=== PATIENT | male | born 1950 | race Asian ===

== ENCOUNTER 2024-02-10 03:55 | Emergency (ER) | payer MEDICAID, SELFPAY ==
[2024-02-10] VITALS (7 sets, daily range): BP systolic 172–201; BP diastolic 94–102; PULSE 63–79; RESP 18–19; TEMP 36.9–37.1; O2SAT 96–98; BMI 26.4
--- NOTE | 2024-02-10 03:57 | EKG_ITS ---
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: : 1950 Requested By: Monica Soto Order Number: [id number] Reading MD: Monica Soto Measurements Intervals [place] Rate: 64 P: 62 MN: 212 QRS: 114 QRSD: 141 T: 47 QT: 381 QTc: 394 Interpretive Statements SINUS RHYTHM WITH FIRST DEGREE AV BLOCK MARKED RIGHT AXIS DEVIATION [QRS AXIS > 100] RIGHT BUNDLE BRANCH BLOCK [120+ ms QRS DURATION, UPRIGHT V1, 40+ ms S IN I/aVL/V4/V5/V6] SEPTAL MYOCARDIAL INFARCTION , OF INDETERMINATE AGE [40+ ms Q WAVE IN V1/V2] Compared to ECG 12/30/2023 15:52:36 First degree AV block now present Right-axis deviation now present Right bundle-branch block now present Left-axis deviation no longer present Myocardial infarct finding still present /store/S0/[id number]/ecg/[id number].pdf
--- NOTE | 2024-02-10 03:58 | XR_ITS ---
Examination: AP chest single view Technique one AP portable upright chest single view Exam date and time: February 10, 2024 at 0409 hrs. Comparison December 30, 2023 Indications: Onset chest pain today Findings: Normal heart size No pneumonia or pulmonary edema. The osseous structures are intact Impression: No active disease
--- NOTE | 2024-02-10 04:14 | PC.NURSE ---
Attempted to obtain [place] drug abuse resistance education officer at this time via video interpretation services but none are available at this time. [employer] service recommended waiting a bit and trying again.
[2024-02-10 04:40] LABS: Basophils % (Auto) 1 % (0-2.5); Eosinophils # (Auto) 0.4 Thou/mm3 (0.0-0.5); Eosinophils % (Auto) 9 % (0-10); Hematocrit 37.6 % (41.0-53.0); Hemoglobin 12.8 g/dL (13.5-16.0); Immature Granulocytes % (Auto) 0 % (0-0); Immature Granulocytes Auto 0.01 Thou/mm3 (0.00-0.00); Lymphocytes # (Auto) 1.4 Thou/mm3 (1.0-4.8); Lymphocytes % (Auto) 32 % (10-50); Mean Corpuscular Hemoglobin 27.8 pg (25.0-35.0); Mean Corpuscular Volume 82 fL (80-100); Monocytes # (Auto) 0.4 Thou/mm3 (0.0-0.8); Monocytes % (Auto) 9 % (0-12); Neutrophils # (Auto) 2.2 Thou/mm3 (1.8-7.7); Neutrophils % (Auto) 50 % (37-80); Nucleated Red Blood Cell % 0 /100 WBC (0); Platelet Count 199 Thou/mm3 (140-440); RDW Standard Deviation 39.5 fL (35.1-43.9); Red Blood Count 4.61 Miln/mm3 (4.50-5.90); White Blood Count 4.4 Thou/mm3 (3.8-10.6)
[2024-02-10 04:55] LABS: B-Type Natriuretic Peptide 35 pg/mL (0-100)
[2024-02-10 04:56] LABS: Alanine Aminotransferase 10 U/L (10-49); Albumin/Globulin Ratio 1.4 (1.2-2.2); Alkaline Phosphatase 57 U/L (46-116); Anion Gap 5 (7-16); Aspartate Amino Transferase 33 U/L (0-34); BUN/Creatinine Ratio 10 Ratio (12-20); Bilirubin,Total 0.5 mg/dL (0.3-1.2); Blood Urea Nitrogen 11 mg/dL (9-23); Calcium 9.2 mg/dL (8.3-10.6); Calcium (Corrected) 9.2 mg/dL (8.5-10.1); Carbon Dioxide 26.2 mMol/L (20.0-31.0); Chloride 105 mMol/L (98-107); Creatinine (Component) 1.1 mg/dL (0.6-1.3); Estimated Creatinine Clearance 49.3 mL/min (>60); Globulin 2.9 gm/dL (2.3-3.5); Glucose 179 mg/dL (74-106); Lipase 59 U/L (12-53); Osmolality,Calculated 275 (275-295); Potassium 4.4 mMol/L (3.4-5.1); Sodium 136 mMol/L (136-145); Total Protein 6.9 gm/dL (5.7-8.2); Troponin I < 0.020 ng/mL (0.0-0.045); eGFR > 60 See Note
--- NOTE | 2024-02-10 06:27 | PC.NURSE ---
Dr. Medina at the bedside.
[2024-02-10] MEDS: MG HYD/AL HYD/SIME (Maalox Reg) SUSP 30 ML UDC PO (06:59)
[2024-02-10] MEDS: LIDOCAINE VISCOUS 2% 15 ML UDC PO (06:59)
--- NOTE | 2024-02-10 07:11 | PD.EDCHEST ---
ED Chest Pain RME/HPI General Chief Complaint: Chest Pain Stated Complaint: CHEST PAIN Time Seen by Provider: 02/10/24 04:19 Arrival date/time: 02/10/24 03:55 RME / HPI RME / HPI narrative: 73-year-old Liberian speaking gentleman who does not report any past medical history who presents to the emergency department with epigastric discomfort, burning that radiates up his chest to his bilateral shoulders. He has had this intermittently in the past, was last seen in the hospital in [place] and told it was stomach problems and was discharged on medications. Today he notes similar symptoms, with chest discomfort associated with it, no shortness of breath, no nausea. He denies diarrhea or constipation. He states he has been under stress lately and is actually traveling through town as he has not been able to stay with his family. He has not taken any medicines for this. He denies past history of surgeries. Limitations: Language, international director revenue line was used Related Data Previous Rx's ?Medication ?Instructions ?Recorded famotidine 20 mg tablet 20 mg PO BID #20 tabs 02/10/24 Allergies Allergy/AdvReac Type Severity Reaction Status Date / Time No Known Allergies Allergy Verified 12/30/23 15:14 Review of Systems Review of Systems Systems Reviewed: All systems reviewed, normal except as documented ED Exam Narrative Physical exam: GENERAL APPEARANCE: AxOx4, generally well-appearing, no acute distress. HEENT: NC, AT. MMM. EOMI, clear conjunctiva, oropharynx clear. NECK: Supple without lymphadenopathy. No stiffness or restricted ROM. HEART: Normal rate and regular rhythm, normal S1/S1, no m/r/g LUNGS: CTAB, moving air well. No crackles or wheezes are heard. ABDOMEN: Soft, mild epigastric tenderness, nondistended with good bowel sounds heard. BACK: No midline C/T/L spine pain or deformity, No CVAT, no obvious deformity. EXTREMITIES: Without cyanosis, clubbing or edema. MUSCULOSKELETAL: FROM of all major joints, no chest tenderness NEUROLOGICAL: Grossly nonfocal. Alert and oriented, moving all 4 extremities. CN not formally tested but appear grossly intact. Observed to ambulate with normal gait. Skin: Warm and dry without any rash. Course Course Course Narrative: Patient remained clinically stable nursing without signs of acute distress. He was given Maalox and lidocaine oral with improvement of symptoms. We reviewed all results, analysis, treatment plan patient was amenable discharge. Strict return precautions were reviewed and patient was discharged in stable condition. Quality Measures none Orders Category Date Time Status EKG (ED ONLY) *Do not use* NOW Care 02/10/24 03:57 Completed EKG (ED Only) Stat Exams 02/10/24 03:57 Draft XR chest 1V portable Stat Exams 02/10/24 03:58 Taken B-Type Natriuretic Peptide Stat Lab 02/10/24 04:32 Completed CBC Stat Lab 02/10/24 04:32 Completed Comprehensive Metabolic Panel Stat Lab 02/10/24 04:32 Completed Lipase Stat Lab 02/10/24 04:32 Completed Troponin I Stat Lab 02/10/24 04:32 Completed Troponin I Stat Lab 02/10/24 06:50 Received Lidocaine 2% Viscous [Xylocaine 2% Viscous] Med 02/10/24 06:49 Discontinued 15 ml PO X1 ONE mg Hyd/Al Hyd/Adilia Susp [Maalox Susp] Med 02/10/24 06:49 Discontinued 30 ml PO X1 ONE Vital Signs Vital signs: Vital Signs Temperature 98.8 F 02/10/24 03:59 Pulse Rate 65 02/10/24 03:59 Respiratory Rate 18 02/10/24 03:59 Blood Pressure 201/94 H 02/10/24 03:59 Pulse Oximetry (%) 97 02/10/24 03:59 Oxygen Delivery Method Room Air 02/10/24 03:59 SpO2 97% on room air, not hypoxic Procedures -ED EKG Interpretation #1: Date of EK02/10/24 Time of EK:25 Rate: 64 Interpretation: Interpreted by me EKG Impression: Normal sinus rhythm, No acute ST-T changes, Bundle branch block and Normal axis Chest Pain MDM Narrative MDM Narrative:: Mr. Brown is an otherwise well-appearing gentleman who presents with symptoms consistent with gastritis. Laboratory testing was sent by the previous provider which is otherwise unremarkable and significant for normal liver enzymes, and normal troponin. EKG shows no signs of acute ischemia, he does have a right bundle branch block. No previous EKG to compare to as he is never been before. He has mild epigastric pain on exam, no Barrera's tenderness, and liver enzymes are within normal limits, further testing for gallbladder or biliary disease such as ultrasound is not indicated here today. He admits to be traveling through [facility] and has been in [place] for the last 4 days. At this point he is not committed as to how long he is going to stay. He does not have a primary care provider here. Overall do not feel this is of cardiac in nature and appears to be be more epigastric/gastric in nature. He is stable for outpatient management Patient data External records reviewed:: [facility] previous records Clinical information provided by:: patient Social determinants that could affect healthcare access:: housing Patient has the following chronic illnesses:: None How is presenting disease/condition affected by chronic disease/condition?: no chronic disease Evaluation data The following diagnostics were reviewed and interpreted by me:: lab results, radiology exam(s) and EKG tracing(s) Lab and/or radiology exams considered but not ordered:: As per narrative Interpretation Summary: As per narrative Medications / Prescriptions Medications or Prescriptions considered but not ordered:: None Medication administrations:: Medication Administration History Discontinued Medications Al Hydrox/Mg Hydrox/Simethicone (Mg Hyd/Al Hyd/Adilia (Maalox Reg) Susp 30 Ml Udc) 30 ml PO X1 ONE Stop: 02/10/24 06:50 Last Admin: 02/10/24 06:59 Dose: 30 ml Documented By: KG Lidocaine HCl (Lidocaine Viscous 2% 15 Ml Udc) 15 ml PO X1 ONE Stop: 02/10/24 06:50 Last Admin: 02/10/24 06:59 Dose: 15 ml Documented By: KG Above Consultations Consultation(s) initiated? (list below): No Diagnosis Chest Pain Differential Diagnosis: atypical chest pain, st elevation myocardial infarction, costochondritis, biliary colic and other (Gastritis, GERD, acute cholecystitis) Most likely diagnosis given after review of the tests above:: See below Admission Indicated Admission indicated?: not indicated Admission Request Was there a request for admission?: No Disposition Plan Disposition Plan: Discharge Discharge Attestation Discharge Attestation: The patient and all family members were given an opportunity to ask questions and understood the discharge instructions. Discharge instructions specifically effects, indications for sooner follow up or return to the emergency department, and the expected course of current diagnosis. Patient condition: Stable Discharge Plan Plan Patient Disposition: HOME (Self Care) Prescriptions/Referrals Prescriptions/Med Rec: New famotidine 20 mg tablet 20 mg PO BID Qty: 20 0RF Referrals: No Primary/Family,Physician [Primary Care Provider] - In 1 week Problem List Clinical Impression: Gastritis Patient/Caregiver Discharge Instructions Education Materials: ED Gastritis (Adult) Additional Instructions: You can follow-up with your primary care doctor as needed. Feel free return to the emergency department sooner if symptoms worsen or if you notice any new or concerning issues Print Language: Liberian Stand Alone Forms: Karina Award Info., Patient Portal Info Letter
[2024-02-10 07:30] LABS: Troponin I < 0.020 ng/mL (0.0-0.045)
--- NOTE | 2024-02-10 08:00 | PC.NURSE ---
POt resting quietly. Denies pain.
== END 2024-02-10 08:15 | disposition home or self-care (01) ==
PROVIDERS: Emergency Medicine; Emergency Provider Emergency Medicine
DX: K29.70 Gastritis, unspecified, without bleeding (principal); R07.89 Other chest pain; I44.0 Atrioventricular block, first degree; I45.10 Unspecified right bundle-branch block
CPT/HCPCS: 36415; 71045; 80053; 83690; 83880; 84484; 85025; 93005; 99283; J3490; A9270